=== PATIENT | female | born 1980 | race Caucasian/White ===

== ENCOUNTER 2017-06-26 13:50 | Emergency (ER) | payer MEDICAID ==
[~2017-06-26] VITALS: Ht 170.2 cm; Wt 105.0 kg
[~2017-06-26 13:50] MED LIST: CARV25TA2 PO; CLON0.3T PO; FURO40TA4 PO; HYDR-4070 PO; MINO2.5T19 PO; NIFE90TA44 PO; PANT40TA4 PO; POTA10TA10 PO; VALS320T13 PO
[2017-06-26] MEDS ORDERED: NYST1000 PO (14:30)
[2017-06-26] MEDS ORDERED: cloNIDine 0.1 mg tablet PO ONE (14:30)
[2017-06-26] MEDS ORDERED: fluconazole 100mg tablet PO ONE (14:30)
[2017-06-26 15:16] VITALS: BP 216/134
== END 2017-06-26 15:18 | disposition home or self-care (01) ==
LOC: ER 13:51
DX: B37.0 Candidal stomatitis (principal); I11.0 Hypertensive heart disease with heart failure; I50.9 Heart failure, unspecified; I25.2 Old myocardial infarction; Z88.8 Allergy status to other drugs, medicaments and biological substances
CPT/HCPCS: 99283

== ENCOUNTER 2017-12-29 13:05 | Inpatient (IN) | payer MEDICAID ==
[~2017-12-29] VITALS: Ht 170.2 cm; Wt 104.7 kg
[~2017-12-29 13:05] MED LIST changes: -HYDR-4070 PO; +IRON150C13 PO; -MINO2.5T19 PO; -VALS320T13 PO; +VALS320T17 PO
[2017-12-29 13:53] LABS: BASOPHILS % (AUTO) 0.4 % (0-1); EOSINOPHILS # (AUTO) 0.1 X10'3 (0-0.9); EOSINOPHILS % (AUTO) 1.5 % (0-6); HEMATOCRIT 41.1 % (35.0-45.0); HEMOGLOBIN 13.6 g/dl (12.0-16.0); LYMPHOCYTES # (AUTO) 1.9 X10'3 (1.1-4.8); MEAN CORPUSCULAR HEMOGLOBIN 25.6 PG (27.0-31.0); MEAN CORPUSCULAR VOLUME 77.5 FL (78-98); MEAN PLATELET VOLUME 7.6 FL (7.4-10.4); MONOCYTES # (AUTO) 0.5 X10'3 (0-0.9); MONOCYTES % (AUTO) 5.1 % (2-12); NEUTROPHILS # (AUTO) 7.1 X10'3 (1.8-7.7); PLATELET COUNT 352 X10'3 (140-440); RED CELL DISTRIBUTION WIDTH 16.4 % (11.5-14.5); WHITE BLOOD COUNT 9.7 X10'3 (4.5-11.0)
[2017-12-29] MEDS ORDERED: morphine 4 MG/ML inj SYRINge IV ONE (14:00)
[2017-12-29] MEDS ORDERED: metoprolol tartrate 1mg/ml inj IV ONE (14:00)
[2017-12-29] MEDS ORDERED: ondansetron/PF 4mg/2ml inj IV ONE (14:00)
[2017-12-29 14:19] LABS: ALANINE AMINOTRANSFERASE 25 U/L (12-78); ALBUMIN 3.3 G/DL (3.4-5.0); ALBUMIN/GLOBULIN RATIO 0.7 (1.1-1.5); ALKALINE PHOSPHATASE 93 IU/L (46-116); ANION GAP 10 (8-16); ASPARTATE AMINO TRANSFERASE 22 U/L (10-37); BILIRUBIN,TOTAL 0.3 MG/DL (0.1-1.0); BLOOD UREA NITROGEN 11 MG/DL (7-18); BUN/CREATININE RATIO 6.8 (6.6-38.0); CHLORIDE 103 MMOL/L (99-107); CREATININE 1.62 MG/DL (0.40-0.90); GLUCOSE 127 MG/DL (70-104); MAGNESIUM 1.6 MG/DL (1.5-2.4); SODIUM 139 MMOL/L (135-145); TOTAL CARBON DIOXIDE 26.1 MMOL/L (24-32); TOTAL PROTEIN 7.9 G/DL (6.4-8.2); eGFR 36 ML/MIN
[2017-12-29 14:21] LABS: POTASSIUM 2.7 MMOL/L (3.5-5.1)
[2017-12-29] MEDS ORDERED: potassium 10mEq/100ml NS w/LIDOcaine (10mg/bag) IV ONE (14:25)
[2017-12-29] MEDS ORDERED: potassium Cl 20 mEq SR tablet PO ONE (14:25)
[2017-12-29] MEDS ORDERED: LORazepam 2 mg/ml vial IV ONE (14:35)
[2017-12-29] MEDS: magnesium 1gm/100ml D5W IVPB 100 ML IV SCH ×2 (14:37→15:55)
[2017-12-29] MEDS ORDERED: diltiazem-NS 100mg/100ml 100 ML IV SCH (14:40)
[2017-12-29] MEDS ORDERED: mag hydrox/Alum hydrox/simeth 30ml oral suspension PO ONE (16:25)
[2017-12-29] MEDS ORDERED: HYDROmorphone 1 mg/ml syringe IV ONE (16:25)
[2017-12-29] MEDS ORDERED: famotidine 20mg tablet PO ONE (16:25)
[2017-12-29] MEDS ORDERED: niCARDipine/sod cl 20mg/200ml 200 ML IV SCH (16:40)
[2017-12-29 16:52] LABS: CLARITY,URINE SLIGHTLY CLOUDY (Clear); COLOR,URINE YELLOW (Yellow); GLUCOSE, URINE NEGATIVE (Neg); KETONES,URINE NEGATIVE (Neg); LEUKOCYTE ESTERASE ,URINE NEGATIVE (Neg); NITRITES, URINE NEGATIVE (Neg); OCCULT BLOOD,URINE MODERATE (Neg); PROTEIN,URINE >=300 mg/dl (Neg); UROBILINOGEN,URINE 0.2 E.U/dL (0.2-1.0)
[2017-12-29 16:53] LABS: UA COLLECTION TYPE STRAIGHT CATH; URINE HCG NEGATIVE (NEG)
[2017-12-29] MEDS ORDERED: HYDROcodone/acetaminophen 10/325mg tab PO PRN (16:55)
[2017-12-29] MEDS ORDERED: magnesium 4gm in 100ml NS 100 ML IV PRN (16:55)
[2017-12-29] MEDS ORDERED: morphine 4 MG/ML inj SYRINge IV PRN ×2 (16:55)
[2017-12-29] MEDS ORDERED: Neutra Phos packet PO PRN (16:55)
[2017-12-29] MEDS ORDERED: acetaminophen 325mg tablet PO PRN (16:55)
[2017-12-29] MEDS ORDERED: sodium phosphate inj. 30 MMOL in dextrose 5%-water 250 ML IV PRN (16:55)
[2017-12-29] MEDS ORDERED: sodium phosphate inj. 15 MMOL in dextrose 5%-water 150 ML IV PRN (16:55)
[2017-12-29] MEDS ORDERED: magnesium 1gm/100ml D5W IVPB 100 ML IV PRN (16:55)
[2017-12-29] MEDS ORDERED: potassium Cl 20 mEq SR tablet PO PRN (16:55)
[2017-12-29] MEDS ORDERED: magnesium Cl slow-release 64mg tablet PO PRN (16:55)
[2017-12-29] MEDS ORDERED: ondansetron/PF 4mg/2ml inj IV PRN (16:55)
[2017-12-29 16:58] LABS: MUCUS STRANDS FEW /LPF (Neg); SQUAMOUS EPITHELIAL CELL,UR MODERATE /LPF (FEW)
[2017-12-29] MEDS: NIFEdipine XL 30mg tablet PO SCH (16:58)
[2017-12-29 16:59] LABS: BACTERIA,URINE 1+ /HPF (Neg); WBC,URINE 0-4 /HPF (0-4)
[2017-12-29] MEDS ORDERED: LOSA50TA3 PO (17:00)
[2017-12-29] MEDS ORDERED: NORE5TAB3 PO (17:00)
[2017-12-29 17:05] LABS: URINE AMPHETAMINE SCREEN NEGATIVE (Neg); URINE BARBITUATE SCREEN NEGATIVE (Neg); URINE BENZODIAZEPINES SCREEN NEGATIVE (Neg); URINE CANNABINOID SCREEN NEGATIVE (Neg); URINE COCAINE SCREEN NEGATIVE (Neg); URINE METHADONE SCREEN NEGATIVE (Neg); URINE OPIATE SCREEN POSITIVE (Neg); URINE PHENCYCLIDINE SCREEN NEGATIVE (Neg)
[2017-12-29] MEDS ORDERED: cloNIDine 0.1 mg tablet PO ONE (17:05)
[2017-12-29] MEDS ORDERED: hydrALAZINE 25 MG tablet PO ONE (17:05)
[2017-12-29] MEDS ORDERED: niCARDipine/sod cl 20mg/200ml 200 ML IV ONE (18:32)
[2017-12-29 19:00] VITALS: BP 135/63
[2017-12-29] MEDS ORDERED: metoclopramide 5 mg/ml inj IV ONE (19:45)
[2017-12-29 20:00] VITALS: BP 127/59
[2017-12-29] MEDS: famotidine 20mg tablet PO SCH (20:00)
[2017-12-29] MEDS: cloNIDine 0.1 mg tablet PO SCH (20:33)
[2017-12-29] MEDS: docusate sod 100mg capsule PO SCH (20:43)
[2017-12-29] MEDS: carvedilol 6.25mg tablet PO SCH (20:43)
[2017-12-29] MEDS: heparin, porcine 5000 units/ml vial SQ SCH (20:44)
[2017-12-29] MEDS: potassium Cl 20 mEq SR tablet PO PRN (20:50)
[2017-12-29 21:00] VITALS: BP 139/74
[2017-12-29 22:00] VITALS: BP 132/66
[2017-12-29 23:00] VITALS: BP 127/79
[2017-12-29] MEDS: hydrALAZINE 25 MG tablet PO SCH (23:32)
[2017-12-30] VITALS (24 sets, daily range): BP systolic 105–164; BP diastolic 56–84
[2017-12-30 01:50] LABS: BASOPHILS # (AUTO) 0.1 X10'3 (0-0.2); EOSINOPHILS # (AUTO) 0.1 X10'3 (0-0.9); EOSINOPHILS % (AUTO) 0.4 % (0-6); HEMATOCRIT 37.4 % (35.0-45.0); HEMOGLOBIN 12.4 g/dl (12.0-16.0); LYMPHOCYTES # (AUTO) 2.1 X10'3 (1.1-4.8); LYMPHOCYTES % (AUTO) 14.3 % (21-51); MEAN CORPUSCULAR HEMOGLOBIN 25.9 PG (27.0-31.0); MEAN CORPUSCULAR HGB CONC 33.2 % (33.0-36.5); MEAN CORPUSCULAR VOLUME 78.2 FL (78-98); MEAN PLATELET VOLUME 8.1 FL (7.4-10.4); MONOCYTES # (AUTO) 0.7 X10'3 (0-0.9); MONOCYTES % (AUTO) 4.8 % (2-12); NEUTROPHILS # (AUTO) 11.6 X10'3 (1.8-7.7); NEUTROPHILS % (AUTO) 79.5 % (42-75); PLATELET COUNT 354 X10'3 (140-440); RED BLOOD COUNT 4.79 X10'6 (4.20-5.60); RED CELL DISTRIBUTION WIDTH 15.1 % (11.5-14.5); WHITE BLOOD COUNT 14.6 X10'3 (4.5-11.0)
[2017-12-30 02:08] LABS: ALBUMIN 2.9 G/DL (3.4-5.0); ANION GAP 9 (8-16); BLOOD UREA NITROGEN 15 MG/DL (7-18); BUN/CREATININE RATIO 7.4 (6.6-38.0); CALCIUM 8.6 MG/DL (8.5-10.1); CHLORIDE 103 MMOL/L (99-107); CREATININE 2.03 MG/DL (0.40-0.90); GLUCOSE 127 MG/DL (70-104); PHOSPHORUS 3.6 MG/DL (2.3-4.5); POTASSIUM 3.5 MMOL/L (3.5-5.1); SODIUM 137 MMOL/L (135-145); TOTAL CARBON DIOXIDE 25.5 MMOL/L (24-32); eGFR 28 ML/MIN
[2017-12-30] MEDS: niCARDipine/sod cl 20mg/200ml 200 ML IV SCH ×3 (04:22→07:46)
[2017-12-30] MEDS: hydrALAZINE 25 MG tablet PO SCH ×2 (08:01→16:00)
[2017-12-30] MEDS: famotidine 20mg tablet PO SCH ×2 (08:02→20:13)
[2017-12-30] MEDS: cloNIDine 0.1 mg tablet PO SCH ×3 (08:02→21:31)
[2017-12-30] MEDS: docusate sod 100mg capsule PO SCH ×2 (08:02→20:14)
[2017-12-30] MEDS: furosemide 40mg tablet PO SCH (08:02)
[2017-12-30] MEDS: heparin, porcine 5000 units/ml vial SQ SCH ×2 (08:44→20:13)
[2017-12-30] MEDS: carvedilol 6.25mg tablet PO SCH ×2 (08:54→20:13)
[2017-12-30] MEDS: NIFEdipine XL 30mg tablet PO SCH (09:53)
[2017-12-30] MEDS: losartan 50mg tablet PO SCH (09:53)
[2017-12-31] VITALS (21 sets, daily range): BP systolic 107–159; BP diastolic 53–89
[2017-12-31] MEDS: hydrALAZINE 25 MG tablet PO SCH ×4 (00:07→23:56)
[2017-12-31] MEDS: acetaminophen 325mg tablet PO PRN ×2 (00:12→20:22)
[2017-12-31 06:38] LABS: BASOPHILS % (AUTO) 0.4 % (0-1); EOSINOPHILS # (AUTO) 0.3 X10'3 (0-0.9); EOSINOPHILS % (AUTO) 3.1 % (0-6); HEMATOCRIT 36.4 % (35.0-45.0); HEMOGLOBIN 12.1 g/dl (12.0-16.0); LYMPHOCYTES # (AUTO) 2.6 X10'3 (1.1-4.8); LYMPHOCYTES % (AUTO) 26.4 % (21-51); MEAN CORPUSCULAR HGB CONC 33.2 % (33.0-36.5); MEAN CORPUSCULAR VOLUME 78.3 FL (78-98); MEAN PLATELET VOLUME 7.9 FL (7.4-10.4); MONOCYTES # (AUTO) 0.7 X10'3 (0-0.9); MONOCYTES % (AUTO) 6.7 % (2-12); NEUTROPHILS # (AUTO) 6.2 X10'3 (1.8-7.7); NEUTROPHILS % (AUTO) 63.4 % (42-75); PLATELET COUNT 346 X10'3 (140-440); RED BLOOD COUNT 4.65 X10'6 (4.20-5.60); RED CELL DISTRIBUTION WIDTH 16.5 % (11.5-14.5); WHITE BLOOD COUNT 9.8 X10'3 (4.5-11.0)
[2017-12-31 06:49] LABS: ALBUMIN 2.8 G/DL (3.4-5.0); ANION GAP 10 (8-16); BLOOD UREA NITROGEN 23 MG/DL (7-18); BUN/CREATININE RATIO 11.7 (6.6-38.0); CALCIUM 8.6 MG/DL (8.5-10.1); CHLORIDE 103 MMOL/L (99-107); CREATININE 1.97 MG/DL (0.40-0.90); GLUCOSE 99 MG/DL (70-104); PHOSPHORUS 3.2 MG/DL (2.3-4.5); POTASSIUM 3.3 MMOL/L (3.5-5.1); SODIUM 137 MMOL/L (135-145); TOTAL CARBON DIOXIDE 23.8 MMOL/L (24-32); eGFR 29 ML/MIN
[2017-12-31] MEDS: carvedilol 6.25mg tablet PO SCH ×2 (07:57→20:12)
[2017-12-31] MEDS: famotidine 20mg tablet PO SCH ×2 (07:57→20:10)
[2017-12-31] MEDS: cloNIDine 0.1 mg tablet PO SCH ×3 (07:58→20:11)
[2017-12-31] MEDS: NIFEdipine XL 30mg tablet PO SCH (07:58)
[2017-12-31] MEDS: losartan 50mg tablet PO SCH (07:58)
[2017-12-31] MEDS: furosemide 40mg tablet PO SCH (07:58)
[2017-12-31] MEDS: docusate sod 100mg capsule PO SCH ×2 (07:58→20:08)
[2017-12-31] MEDS: heparin, porcine 5000 units/ml vial SQ SCH ×2 (07:59→20:13)
[2017-12-31] MEDS ORDERED: lactulose 20gm/30ml cup PO PRN (16:55)
[2017-12-31] MEDS: potassium Cl 20 mEq SR tablet PO PRN ×2 (20:11→23:56)
[2018-01-01 03:00] VITALS: BP 156/84
[2018-01-01] MEDS: potassium Cl 20 mEq SR tablet PO PRN (05:57)
[2018-01-01 06:30] LABS: BASOPHILS % (AUTO) 0.6 % (0-1); EOSINOPHILS # (AUTO) 0.3 X10'3 (0-0.9); EOSINOPHILS % (AUTO) 3.7 % (0-6); HEMATOCRIT 34.9 % (35.0-45.0); HEMOGLOBIN 11.6 g/dl (12.0-16.0); LYMPHOCYTES % (AUTO) 25.1 % (21-51); MEAN CORPUSCULAR HEMOGLOBIN 25.9 PG (27.0-31.0); MEAN CORPUSCULAR HGB CONC 33.1 % (33.0-36.5); MEAN CORPUSCULAR VOLUME 78.2 FL (78-98); MEAN PLATELET VOLUME 8.3 FL (7.4-10.4); MONOCYTES # (AUTO) 0.5 X10'3 (0-0.9); MONOCYTES % (AUTO) 6.4 % (2-12); NEUTROPHILS # (AUTO) 5.1 X10'3 (1.8-7.7); NEUTROPHILS % (AUTO) 64.2 % (42-75); PLATELET COUNT 323 X10'3 (140-440); RED BLOOD COUNT 4.47 X10'6 (4.20-5.60); RED CELL DISTRIBUTION WIDTH 16.4 % (11.5-14.5)
[2018-01-01 07:00] VITALS: BP 158/90
[2018-01-01 07:08] LABS: ALBUMIN 2.6 G/DL (3.4-5.0); ANION GAP 7 (8-16); BLOOD UREA NITROGEN 23 MG/DL (7-18); BUN/CREATININE RATIO 12.9 (6.6-38.0); CALCIUM 8.7 MG/DL (8.5-10.1); CHLORIDE 105 MMOL/L (99-107); CREATININE 1.78 MG/DL (0.40-0.90); GLUCOSE 99 MG/DL (70-104); PHOSPHORUS 3.7 MG/DL (2.3-4.5); POTASSIUM 3.6 MMOL/L (3.5-5.1); SODIUM 138 MMOL/L (135-145); TOTAL CARBON DIOXIDE 25.6 MMOL/L (24-32); eGFR 32 ML/MIN
[2018-01-01] MEDS: docusate sod 100mg capsule PO SCH (08:00)
[2018-01-01] MEDS: carvedilol 6.25mg tablet PO SCH (08:01)
[2018-01-01] MEDS: hydrALAZINE 25 MG tablet PO SCH (08:01)
[2018-01-01] MEDS: cloNIDine 0.1 mg tablet PO SCH ×2 (08:02→13:28)
[2018-01-01] MEDS: losartan 50mg tablet PO SCH (08:02)
[2018-01-01] MEDS: famotidine 20mg tablet PO SCH (08:02)
[2018-01-01] MEDS: furosemide 40mg tablet PO SCH (08:02)
[2018-01-01] MEDS: NIFEdipine XL 30mg tablet PO SCH (08:03)
[2018-01-01] MEDS: heparin, porcine 5000 units/ml vial SQ SCH (08:05)
[2018-01-01] MEDS: acetaminophen 325mg tablet PO PRN (08:05)
[2018-01-01] MEDS ORDERED: hydrALAZINE 25 MG tablet PO ONE (08:40)
[2018-01-01 11:00] VITALS: BP 158/90
[2018-01-01 15:00] VITALS: BP 130/63
[2018-01-01] MEDS ORDERED: HYDR-4069 PO (15:15)
[2018-01-01] MEDS ORDERED: FAMO20TA8 PO (15:15)
[2018-01-01] MEDS ORDERED: CARV6.253 PO (15:15)
[2018-01-01] MEDS ORDERED: hydrALAZINE 25 MG tablet PO SCH (16:00)
== END 2018-01-01 16:40 | disposition home or self-care (01) | DRG 194 ==
LOC: ER 13:06 → ED HOLD 16:52 → ICU 2S 18:23 → CICU 2S 12-31 05:28 → PCU 3S 12-31 18:36
PROVIDERS: ADMIT Internal Medicine Critical Care Medicine; ATTEND Internal Medicine Critical Care Medicine
DX: I13.0 Hypertensive heart and chronic kidney disease with heart failure and stage 1 through stage 4 chronic kidney disease, or unspecified chronic kidney disease (principal); E66.01 Morbid (severe) obesity due to excess calories; N18.4 Chronic kidney disease, stage 4 (severe); I16.1 Hypertensive emergency; I25.2 Old myocardial infarction; E28.2 Polycystic ovarian syndrome; E87.6 Hypokalemia; I50.33 Acute on chronic diastolic (congestive) heart failure; I45.81 Long QT syndrome; Z82.49 Family history of ischemic heart disease and other diseases of the circulatory system; Z83.3 Family history of diabetes mellitus; Z88.8 Allergy status to other drugs, medicaments and biological substances; Z79.899 Other long term (current) drug therapy
CPT/HCPCS: 36415; 70450; 71045; 71250; 74176; 80053; 80069; 80305; 81001; 81025; 83735; 83880; 84132; 84484; 85025; 87070; 93005; 96374; 96375; 99285; A4353; A6213; J1170; J1644; J2060; J2270; J2405; J2765; J3480; J3490

== ENCOUNTER 2018-06-08 13:03 | Inpatient (IN) | payer MEDICAID | END 2018-06-11 17:45 | disposition E DONOR | LOC: ICU 2S 06-09 00:36 → ER 13:03 → ICU 2S 06-09 00:37 → ED HOLD 16:09 → ICU 2S 17:43 ==

== ENCOUNTER 2018-06-11 14:42 | Inpatient (IN) | payer OTHER | END 2018-06-11 16:00 | disposition E DONOR | LOC: ICU 2S 14:42 → PACU 14:42 ==